=== PATIENT | male | born 1955 | race Caucasian/White ===

== ENCOUNTER 2019-06-11 11:15 | Emergency (ER) | payer MEDICAID ==
[~2019-06-11] VITALS: Ht 175.3 cm; Wt 52.7 kg
[2019-06-11 11:54] LABS: BASOPHILS % (AUTO) 0.8 % (0-1); EOSINOPHILS # (AUTO) 0.1 X10'3 (0-0.9); EOSINOPHILS % (AUTO) 1.7 % (0-6); HEMATOCRIT 43.9 % (42.0-52.0); HEMOGLOBIN 15.2 g/dl (14.0-17.9); LYMPHOCYTES # (AUTO) 1.5 X10'3 (1.1-4.8); LYMPHOCYTES % (AUTO) 23.6 % (21-51); MEAN CORPUSCULAR HEMOGLOBIN 34.1 PG (27.0-31.0); MEAN CORPUSCULAR HGB CONC 34.6 g/dL (33.0-36.5); MEAN CORPUSCULAR VOLUME 98.6 FL (78-98); MEAN PLATELET VOLUME 6.5 FL (7.4-10.4); MONOCYTES # (AUTO) 0.8 X10'3 (0-0.9); MONOCYTES % (AUTO) 12.3 % (2-12); NEUTROPHILS # (AUTO) 3.8 X10'3 (1.8-7.7); NEUTROPHILS % (AUTO) 61.6 % (42-75); PLATELET COUNT 309 X10'3 (140-440); RED BLOOD COUNT 4.46 X10'6 (4.70-6.10); RED CELL DISTRIBUTION WIDTH 13.2 % (11.5-14.5); WHITE BLOOD COUNT 6.2 X10'3 (4.5-11.0)
[2019-06-11 12:04] LABS: PARTIAL THROMBOPLASTIN TIME 28 SECONDS (22-32)
[2019-06-11 12:05] LABS: ALANINE AMINOTRANSFERASE 42 U/L (12-78); ALBUMIN 4.1 G/DL (3.4-5.0); ALBUMIN/GLOBULIN RATIO 1.3 (1.1-1.5); ALKALINE PHOSPHATASE 117 IU/L (46-116); ANION GAP 8 (8-16); ASPARTATE AMINO TRANSFERASE 34 U/L (10-37); BILIRUBIN,TOTAL 0.6 MG/DL (0.1-1.0); BLOOD UREA NITROGEN 10 MG/DL (7-18); BUN/CREATININE RATIO 13.3 (5.4-32.0); CALCIUM 9.1 MG/DL (8.5-10.1); CHLORIDE 99 MMOL/L (99-107); CREATININE 0.75 MG/DL (0.60-1.10); GLUCOSE 112 MG/DL (70-104); POTASSIUM 4.2 MMOL/L (3.5-5.1); SODIUM 134 MMOL/L (135-145); TOTAL PROTEIN 7.3 G/DL (6.4-8.2); eGFR > 90 ML/MIN
[2019-06-11 15:12] VITALS: BP 155/90
== END 2019-06-11 15:13 | disposition home or self-care (01) ==
LOC: ER 11:16
DX: R07.89 Other chest pain (principal); J44.9 Chronic obstructive pulmonary disease, unspecified; F12.90 Cannabis use, unspecified, uncomplicated; K21.9 Gastro-esophageal reflux disease without esophagitis; Z87.11 Personal history of peptic ulcer disease; Z87.891 Personal history of nicotine dependence
CPT/HCPCS: 36415; 71045; 80053; 84484; 85025; 85610; 85730; 93005; 99284

== ENCOUNTER 2025-06-21 07:42 | Emergency (ER) | payer BC, MEDICAID ==
[~2025-06-21] VITALS: Ht 172.7 cm; Wt 49.1 kg
--- NOTE | 2025-06-21 08:32 | Physician Documentation ---
History of Present Illness ~ Chief Complaint: Cold, cough & congestion Stated Complaint: COLD SYMPTOMS Time Seen by MD: 08:15 [facility] Mode of Arrival: POV HPI 69-year-old male with a history of COPD presenting with chest congestion for the past three days. Patient states that he has been coughing but that he feels a lot of phlegm buildup in his chest. He also describes sinus congestion with a clear discharge. He reports that overnight last night he felt a lot of chills and he has been feeling a little bit weaker than usual. He wants to make sure that he is not developing pneumonia. Denies any chest pain, nausea, vomiting or any other associated symptoms. Medication Reconciliation Allergies: Coded Allergies: No Known Allergies (Unverified , 06/21/25) Scheduled Azithromycin (Azithromycin), 1 TAB PO UD Prednisone (Prednisone), 1 TAB PO DAILY Past Medical History Past Medical History: No Pertinent History, COPD, GERD, Peptic Ulcer Disease Past Surgical History: noncontributory Alcohol Use: Rarely Drug Use: marijuana Review of Systems All Other Systems at this time: Reviewed and Negative Physical Exam Vital Signs: Temperature: 98.4, Source: Oral, Heart Rate: 77, Respiratory Rate: 18, BP: 142/101, Pulse Oximetry: 97, Weight: 49.100 Oxygen Flow Rate: 0 Physical Exam I have reviewed the triage vitals. CONST: Well developed and well nourished. In no acute distress HENT: Head Atraumatic EYES: Pupils are equal, round and reactive to light. Normal conjunctiva NECK: Normal range of motion. Supple. CARDIO: Normal rate and regular rhythm. No murmurs, rubs, or gallops. S1, S2. PULM/CHEST: No respiratory distress. Lungs clear to auscultation. No wheeze ABD: Soft and nontender. Nondistended. Bowel sounds normal. No guarding. : Exam deferred MSK: No edema. No deformity. NEURO: Alert and oriented to person, place and time. Moving all extremities SKIN: Warm and dry. PSYCH: Normal mood and affect. Good eye contact. Progress Results/Orders Reviewed/noted all lab results: Yes Results/Orders Orders - FLAVIO BEVERLY MD Chest,Single View (06/21/25 08:28) Covid19 Binax Poc Result Entry (06/21/25 08:28) Completed Orders - FLAVIO BEVERLY MD Chest,Single View (06/21/25 08:28) Cbc/Diff (06/21/25 08:28) BMP (06/21/25 08:28) Influenza Type A&B Rapid Test (06/21/25 08:28) Vital Signs 06/21/25 06/21/25 06/21/25 06/21/25 07:58 08:14 08:22 10:05 Temp 98.4 Pulse 79 77 75 Resp 16 18 18 B/P (MAP) 168/100 142/101 (115) 133/86 (102) Pulse Ox 97 97 96 O2 Delivery Room Air O2 Flow Rate 0 0 0 0 FiO2 97 06/21/25 11:38 Pulse 72 Resp 18 B/P (MAP) 138/91 (107) Pulse Ox 96 O2 Flow Rate 0 Laboratory Tests Test 06/21/25 08:39 06/21/25 09:10 White Blood Count 5.3 Red Blood Count 4.57 L Hemoglobin 14.5 Hematocrit 42.3 Mean Corpuscular Volume 92.5 Mean Corpuscular Hemoglobin 31.7 H Mean Corpuscular Hemoglobin Concent 34.2 Red Cell Distribution Width 14.4 Platelet Count 349 Mean Platelet Volume 6.1 L Neutrophils (%) (Auto) 61.4 Lymphocytes (%) (Auto) 27.3 Monocytes (%) (Auto) 10.2 Eosinophils (%) (Auto) 0.4 Basophils (%) (Auto) 0.7 Neutrophils # (Auto) 3.3 Lymphocytes # (Auto) 1.4 Monocytes # (Auto) 0.5 Eosinophils # (Auto) 0.0 Basophils # (Auto) 0.0 CBC Comment Sodium Level 128 L Potassium Level 4.9 Chloride Level 93 L Carbon Dioxide Level 28.5 Anion Gap 7 L Blood Urea Nitrogen 12 Creatinine 0.67 Estimated GFR/1.73 m2 > 90 BUN/Creatinine Ratio 17.9 Glucose Level 113 H Calcium Level 9.1 Albumin 3.7 Chemistry Comments Influenza Type A Antigen Negative Influenza Type B Antigen Negative SARS-CoV-2 Antigen (Rapid) Negative EKG/XRAY/CT/US/VASC/MRI Chest X-Ray : Additional Comments CHEST RADIOGRAPH Indication: cough Technique: Single frontal view of the chest was obtained COMPARISON: None FINDINGS: Lines and Tubes: None Lungs: Congestion Pleura: No effusion. No pneumothorax. Cardiomediastinal contours: Unremarkable Bones: Unremarkable IMPRESSION: Increased interstital prominence. This may represent pulmonary vascular congestion and/or viral pneumonia. Clinical correlation advised. Medical Decision Making Additional information obtaine: N/A Findings NA Differential Dx:Considerations: Unlikely: Allergic rhinitis, Influenza, Otitis media, Peritonsillar abscess, Pharyngitis-Diphtheria, Pharyngitis-Streptoccal, Pharyngitis-Viral, Pneumonia, Pnuemonitis, Sinusitis, URI, Other Differential Diagnosis 69-year-old male presenting for what appears to be a mild COPD exacerbation and acute bronchitis. Chest x-ray shows some increased opacities concerning for developing pneumonia. Additionally we did do lab work which was unremarkable. Patient's vitals were stable did not require any medications in the ED. Will discharge with a prescription for prednisone for five days as well as azithromycin for five days. Advised plenty of fluids and rest. Monitor for improvement and resolution. Return to the ED with any acutely worsening symptoms. Patient expressed full understanding of the assessment and plan and was amenable. Departure Disposition: 01 HOME / SELF CARE / HOMELESS Impression: Primary Impression: Acute bronchitis Additional Impression: COPD exacerbation Condition: Improved Discharge Instructions: Acute Bronchitis, Adult Additional Instructions: Medications as prescribed. Rest and plenty of fluids. Monitor for improvement a nd resolution. Follow up with your PCP in the next 2-3 days. Return to the ED with any acutely worsening symptoms. Referrals: NO PRIMARY CARE PROVIDER (PCP) Prescriptions Azithromycin (Azithromycin) 250 Mg Tablet 1 TAB PO UD for 5 Days, #6 TAB 2 the first day followed by 1 for days 2-5 Prov: FLAVIO BEVERLY MD 06/21/25 Prednisone (Prednisone) 50 Mg Tablet 1 TAB PO DAILY for 5 Days, #5 TAB 0 Refills Prov: FLAVIO BEVERLY MD 06/21/25 Signature Scribe Signature: 1 Attestation: 1 FLAVIO BEVERLY MD Jun 21, 2025 08:32
--- NOTE | 2025-06-21 09:03 | RADIOLOGY REPORT ---
CHEST RADIOGRAPH Indication: cough Technique: Single frontal view of the chest was obtained COMPARISON: None FINDINGS: Lines and Tubes: None Lungs: Congestion Pleura: No effusion. No pneumothorax. Cardiomediastinal contours: Unremarkable Bones: Unremarkable IMPRESSION: Increased interstital prominence. This may represent pulmonary vascular congestion and/or viral pneumonia. Clinical correlation advised.
[2025-06-21 09:04] LABS: MEAN PLATELET VOLUME 6.1 FL (7.4-10.4); RED CELL DISTRIBUTION WIDTH 14.4 % (11.5-14.5)
[2025-06-21 09:42] LABS: INFLUENZA TYPE A ANTIGEN RAPID NEGATIVE (Negative); INFLUENZA TYPE B ANTIGEN RAPID NEGATIVE (Negative)
[2025-06-21 10:04] LABS: CREATININE 0.67 MG/DL (0.60-1.10); TOTAL CARBON DIOXIDE 28.5 MMOL/L (24-32); eCRCL 71 ML/MIN; eGFR > 90 ML/MIN
[2025-06-21] MEDS ORDERED: PRED50TA PO (11:45)
[2025-06-21] MEDS ORDERED: AZIT250T83 PO (11:45)
[2025-06-21 12:12] VITALS: BP 138/91; PULSE 72; RESP 16; TEMP 98; O2SAT 98
== END 2025-06-21 12:13 | disposition home or self-care (01) ==
LOC: ER 07:42
DX: J44.1 Chronic obstructive pulmonary disease with (acute) exacerbation (principal); J20.9 Acute bronchitis, unspecified; K21.9 Gastro-esophageal reflux disease without esophagitis; F12.90 Cannabis use, unspecified, uncomplicated; Z79.899 Other long term (current) drug therapy; Z20.822 Contact with and (suspected) exposure to COVID-19
CPT/HCPCS: 36415; 71045; 80048; 85025; 87804; 87811; 99285